=== PATIENT | male | born 1965 | race Caucasian/White ===

== ENCOUNTER 2017-05-05 06:11 | Day surgery (SDC) | payer OTHER ==
[~2017-05-05] VITALS: Ht 170.2 cm; Wt 91.7 kg
[~2017-05-05 06:11] MED LIST: SODIUM CHLORIDE 0.9% 1,000 ML IV ONE
[2017-05-05] MEDS ORDERED: SIMV-259 PO (07:07)
[2017-05-05] MEDS ORDERED: IPRA4AER IH (07:07)
[2017-05-05] MEDS ORDERED: NAPR250T2 PO (07:07)
[2017-05-05] MEDS ORDERED: CETI-260 PO (07:07)
[2017-05-05] MEDS ORDERED: PRED10 PO (07:07)
[2017-05-05] MEDS ORDERED: MethylPREDNISolone SOD SUCC 125 MG/2 ML VIAL IVP ONE (08:30)
[2017-05-05] MEDS ORDERED: LIDOCAINE HCL 4% 50 ML SOLUTION TP ONE (12:05)
[2017-05-05] MEDS ORDERED: BENZOCAINE 20% 50 MCG/SPRAY 57 GM TP ONE (12:05)
[2017-05-05] MEDS ORDERED: LIDOCAINE HCL 2% 30 ML JELLY TP ONE (12:05)
[2017-05-05] MEDS ORDERED: SODIUM CHLORIDE 0.9% 1,000 ML IV ONE (14:27)
[2017-05-05] MEDS ORDERED: FentaNYL CITRATE-PF 100 MCG/2 ML VIAL ONE (14:27)
[2017-05-05] MEDS ORDERED: MIDAZOLAM HCL 2 MG/2 ML VIAL ONE (14:27)
[2017-05-05] MEDS ORDERED: MethylPREDNISolone SOD SUCC 125 MG/2 ML VIAL ONE (14:29)
[2017-05-05] MEDS ORDERED: OXYGEN THERAPY IH SCH (20:00)
== END 2017-05-05 10:05 | disposition home or self-care (01) ==
LOC: SURGERY 06:11
PROVIDERS: ATTEND Internal Medicine Critical Care Medicine
DX: J38.4 Edema of larynx (principal); B37.0 Candidal stomatitis; M10.9 Gout, unspecified; K21.9 Gastro-esophageal reflux disease without esophagitis
CPT/HCPCS: 31623; 31624; 71010; 87015 ×2; 87070; 87101; 87205; 87220; 88108; 88312; J2250; J2930; J3010; J7030